=== PATIENT | female | born 1965 | race Caucasian/White ===

== ENCOUNTER 2016-11-02 13:31 | Outpatient (CLI) | payer OTHER | END 2016-11-02 13:32 | disposition home or self-care (01) | LOC: NC 13:31 | PROVIDERS: ATTEND Nurse Practitioner | DX: E66.8 Other obesity (principal); Z71.3 Dietary counseling and surveillance; Z68.43 Body mass index [BMI] 50.0-59.9, adult ==

== ENCOUNTER 2016-12-10 15:43 | Outpatient (CLI) | payer OTHER | END 2016-12-10 15:44 | disposition home or self-care (01) | LOC: NC 15:43 | PROVIDERS: ATTEND Nurse Practitioner | DX: E66.8 Other obesity (principal); Z71.3 Dietary counseling and surveillance; Z68.43 Body mass index [BMI] 50.0-59.9, adult ==